=== PATIENT | female | born 1945 | race Caucasian/White ===

== ENCOUNTER 2023-10-26 10:19 | Outpatient (POV) | payer MEDICARE, SELFPAY ==
[2023-10-26 11:53] VITALS: BP 135/61; PULSE 109; RESP 18; O2SAT 91; BMI 23.9
--- NOTE | 2023-10-26 13:00 | EXP.PAIN.OV ---
HPI Data of Consult Patient: new to practice Consult date: 10/26/23 Requesting Physician: Nathalie Zuleta APRN Consult Narrative Reason for consult: Mid back pain History of present illness: Ms. Bauer is a 78 year old female who presents today as a new patient. She is a referral from [facility]. Today she rates her pain a 10 out of 10. Patient states that she is experiencing pain all around her mid back that does radiate down into her low back but also into her abdomen patient states that she has had chronic pain however this is different. Patient states that she really noticed a change in her pain and around mid August. Patient states the pain was unrelenting and it is a sharp severe pain that takes her breath away. She states that any little movement causes worsening pain and that she cannot do any activity let alone activities of daily living such as cooking and cleaning due to the pain. She states that her mid back is supersensitive to touch and that she has not even been able to wear a bra due to the extreme sensitivity and worsening pain. Patient states that she did end up going to the ER and was diagnosed with a compression fracture however she denies any specific trauma or fall that related to this. Patient states that in the past she had had a DEXA scan about 4 years ago and her doctor at that time said everything was okay however she does question whether or not if it showed more osteoporosis. Patient states that within the last year or so she was given intranasal calcium nasal spray and then does take vitamin D supplements for her osteoporosis. Patient has been tried on [place] 5 mg and Percocet 5 mg and does not with no additional change. Patient states the pain is excruciating and she would like to proceed forward with what ever to make the pain go away. Patient does have severe COPD and is on continuous O2. Patient's oxygen level today was at 91%. Patient states that she believes her oxygen is low due to the worsening pain and that she cannot take adequate deep breaths due to it it sending sharp shooting pains. Patient states that nothing seems to make the pain better. She is also tried CBD products. Her Mj has been reviewed and is appropriate. Patient was denied MRI due to not having recent physical therapy. CC: Nathalie Zuleta APRN [facility] Disclaimer: The information contained in this section may have been updated after the patient was seen, as this information can be updated by other users. Medical History (Updated 10/26/23 @ 13:08 by Nathalie Zuleta APRN) Diabetes COPD (chronic obstructive pulmonary disease) CAD (coronary artery disease) Glaucoma HLD (hyperlipidemia) Vitamin D deficiency Cobalamin deficiency Surgical History (Updated 10/26/23 @ 10:50 by Marisela Huynh RN) History of lung surgery H/O breast surgery H/O: hysterectomy History of cataract surgery Family History (Updated 10/26/23 @ 10:48 by Marisela Huynh RN) Other Alzheimer disease Cancer Diabetes Glaucoma Hypertension Hypothyroidism Social History (Updated 10/26/23 @ 11:08 by Marisela Huynh RN) Smoking Status: Current every day smoker alcohol intake: never current occupational status: retired Travel in the last 8 weeks: None Review of Systems Review of Systems Review of systems:: pertinent systems reviewed and negative unless documented below Review of systems (narrative): Review of Systems: General: No recent weight changes, no fever, no sleep disturbances Respiratory: No cough, no shortness of air, no recurring pulmonary infections Cardiovascular/peripheral vascular: No chest pain, no palpitations, no edema, no shortness of breath Gastrointestinal: No new onset incontinence, normal bowel movements reported Genitourinary: No new onset incontinence Musculoskeletal: Mid back pain Psychiatric: [Normal mood/affect] Neurological: [Denies weakness in extremities], [denies balance issues] Meds Home Medications and Allergies Home Medications Medication Instructions Recorded Confirmed Type albuterol sulfate 2.5 mg/3 mL 2.5 mg inhalation DIRECTED 10/26/23 10/26/23 History (0.083 %) solution for nebulization Breathing Problems albuterol sulfate 90 mcg/actuation 2 puff inhalation Q4HP PRN 10/26/23 10/26/23 History aerosol inhaler (Ventolin HFA) Breathing Problems atorvastatin 20 mg tablet 20 mg PO DAILY Cholesterol 10/26/23 10/26/23 History baclofen 5 mg tablet 5 mg PO TID #42 tabs 10/26/23 Rx calcitonin (salmon) 200 1 spray intranasal DAILY 10/26/23 10/26/23 History unit/actuation nasal spray furosemide 40 mg tablet 40 mg PO DAILYP PRN SWELLING 10/26/23 10/26/23 History hydrocodone 7.5 mg-acetaminophen 1 tab PO TID #42 tabs 10/26/23 Rx 325 mg tablet ketorolac 10 mg tablet 10 mg PO Q8HP PRN Pain 10/26/23 10/26/23 History montelukast 10 mg tablet 10 mg PO DAILY ALLERGIES 10/26/23 10/26/23 History omeprazole 40 mg capsule,delayed 40 mg PO DAILY GERD 10/26/23 10/26/23 History release oxycodone-acetaminophen 5 mg-325 1 tab PO Q8HP PRN Pain 10/26/23 10/26/23 History mg tablet pregabalin 100 mg capsule 100 mg PO TID Pain 10/26/23 10/26/23 History roflumilast 250 mcg tablet 250 mcg PO DAILY 10/26/23 10/26/23 History tizanidine 4 mg tablet 4 mg PO BIDP PRN Pain 10/26/23 10/26/23 History New Prescriptions to Start Prescriptions: baclofen Song,Nathalie A hydrocodone-acetaminophen Zuleta,Nathalie A Allergies Allergy/AdvReac Type Severity Reaction Status Date / Time doxycycline Allergy Verified 10/26/23 10:26 levofloxacin [From Levaquin] Allergy Verified 10/26/23 10:26 Objective Vital signs: Pulse Resp BP Pulse Ox O2 Del Method O2 Flow Rate 109 H 18 135/61 91 L Nasal Cannula 3 10/26/23 11:53 10/26/23 11:53 10/26/23 11:53 10/26/23 11:53 10/26/23 11:53 10/26/23 11:53 Narrative: Physical Exam: General: Alert and oriented x3, no acute distress, pleasant and cooperative Lungs: Respirations even and unlabored, symmetrical chest expansion Eyes: PERRL Musculoskeletal: Flexion and extension of thoracic [spine] somewhat guarded secondary to pain, [antalgic gait noted] point tenderness along mid back Neurological: Speech clear, no gross sensory deficit Additional findings Additional findings: CT thoracic spine without contrast September 15, 2023 Findings: T9 compression fracture has progressed since the prior examination with that under 50% height loss as compared to 25% previously there is some associated sclerosis and there is curvilinear lucency within the vertebral body and could represent an acute on healing subacute fracture. Pathological fracture is not completely excluded. Short-term follow-up MRI pre and postcontrast is recommended. No subluxation or significant bony repulsion. Posterior elements are intact. Remaining vertebral body heights are maintained. No abnormal paraspinal soft tissue thickening. Visualized portions of the lungs demonstrate advanced emphysematous changes as before. There is worsening airspace disease within the posterior medial right upper lobe and there is mucus or other debris within the trachea and mainstem bronchi. Left-sided calcified pleural plaques are again noted. Lumbar CT 09/08/2023 Interpretation: Lumbar vertebral body stature maintained. Multilevel osteophytes and facet arthrosis. Advanced L5-S1 disc height loss. No listhesis. Atherosclerotic aorta. Degenerative changes SI joints and pubic symphysis. Superior hip joint space narrowing bilaterally Thoracic CT 10/04/2023 Findings: Normal vertebral body heights and alignment. Minimal anterior osteophytic spurring and disc space narrowing. Emphysematous changes are noted in the lungs Assessment and Plan *Assessment and plan (1) Compression fracture of body of thoracic vertebra: Status: Acute Category: Medical Code(s): S22.000A - Wedge compression fracture of unspecified thoracic vertebra, initial encounter for closed fracture (2) Degenerative disc disease, thoracic: Status: Acute Category: Medical Code(s): M51.34 - Other intervertebral disc degeneration, thoracic region (3) Thoracic radiculopathy: Status: Acute Category: Medical Code(s): M54.14 - Radiculopathy, thoracic region (4) Degenerative disc disease, lumbar: Status: Acute Category: Medical Code(s): M51.36 - Other intervertebral disc degeneration, lumbar region (5) Lumbar radiculopathy: Status: Acute Category: Medical Code(s): M54.16 - Radiculopathy, lumbar region Plan Patient is experiencing significant pain throughout her mid back with radiating symptoms. Patient does have a significant T9 compression fracture. I have discussed with the patient and her family that she may be a beneficial candidate of a kyphoplasty. Risk and benefits were discussed with the patient and they would like to proceed forward to see if this is an option. I will submit for thoracic MRI to evaluate whether or not this compression fracture is acute or chronic or acute on chronic condition. Patient has tried and failed conservative treatment including multiple pain medications, heat and ice, topicals. Patient is not a candidate for physical therapy due to her significant comorbidities of COPD and active pulmonary disease. Patient is on continuous oxygen. Patient has had worsening pain that does correlate with an acute compression fracture. I will send in a prescription of baclofen 5 mg 3 times daily and Abingdon 7.5 mg 3 times daily and provide a 2-week supply of these medications. I will order the DEXA scan since it has been approximately 4 years and patient is already prescribed for osteoporosis medication of nasal spray from her PCP. We will use this to confirm the osteoporosis diagnosis. I have discussed that she may also benefit from a thoracic epidural steroid injection for additional pain improvement. Risk and benefits were discussed with patient and she would like to proceed forward with this plan of care. Patient is not currently on blood thinners. I did also pet adoption counselor the patient when she goes for her MRI due to the prolonged positioning and worsening pain she is and that I will send a one-time dose of diazepam 2 mg to be taken approximately 45 minutes prior to the procedure. Patient acknowledges understanding agrees with this plan of care. I will also order the patient a compounded cream. Patient will be scheduled for a thoracic epidural under fluoroscopy at T8-T9. Patient has been instructed to contact the clinic with any concerns before the next appointment. Dr. Ovalle has reviewed this note and agrees with this plan of care. This note was dictated using voice recognition software and make contain errors or omissions.
== END 2023-10-26 23:59 | disposition home or self-care (01) ==
PROVIDERS: Visit Provider Nurse Practitioner Family
DX: S22.000A Wedge compression fracture of unspecified thoracic vertebra, initial encounter for closed fracture (principal); M51.14 Intervertebral disc disorders with radiculopathy, thoracic region; M51.16 Intervertebral disc disorders with radiculopathy, lumbar region
CPT/HCPCS: 99202; G0463

== ENCOUNTER 2023-11-01 09:19 | Day surgery (SDC) | payer MEDICARE, SELFPAY ==
[2023-11-01 09:42] VITALS: BP 150/80; PULSE 110; RESP 18; TEMP 36.6; O2SAT 92; BMI 23.2
[2023-11-01 10:05] VITALS: BP 117/66; PULSE 113; RESP 20; O2SAT 92
--- NOTE | 2023-11-01 10:08 | EXP.PAIN.PRO ---
Procedure Date: 11/01/23 Time: 09:55 Anesthesiologist:: Gomez Reyes CRNA Complications:: None Pre-procedure Diagnosis:: Degenerative disc thoracic spine multilevels. Cervical radiculopathy. T9 compression fracture. Post-procedure Diagnosis:: Same. Indications for Procedure:: Patient is a pleasant 78-year-old female comes our clinic today for T8-9 thoracic epidural steroid injection. Patient reports thoracic back pain as well as bilateral rib cage radicular pain. Patient has confirmed T9 compression fracture. She rates her pain 10/10. Procedure Details:: Procedure:Thoracic epidural steroid injection under fluoroscopy Informed consent was obtained and the risks and benefits of the procedure were explained to the patient. The patient was taken to the procedure room and noninvasive monitors placed, including noninvasive blood pressure cuff and pulse oximeter. The back was viewed using C-Arm fluoroscopy and prepped using Betadine as a cleansing solution and the T8-9 interspace was palpated. Skin and subcutaneous tissues were anesthetized using lidocaine 1.5% and a 25-gauge needle. After this, an 18-gauge Touhy epidural needle was placed into the T8-9 interspace and advanced using fluoroscopic guidance and loss of resistance to air until the epidural space was encountered. After confirmation of needle placement in the epidural space, with dye, a solution containing lidocaine 1.5%, 4 mL and Depo-Medrol 80 mg were incrementally injected into the thoracic epidural space. The patient tolerated the procedure well with no complications. The patient was observed in the Pain Clinic and then discharged home neurologically intact. Plan and Disposition:: Patient was discharged without incident.
[2023-11-01 10:09] VITALS: BP 172/77; PULSE 80; RESP 18
[2023-11-01 10:12] VITALS: BP 177/72; PULSE 80; RESP 22
== END 2023-11-01 10:07 | disposition home or self-care (01) ==
LOC: SC.PAINP 09:23
PROVIDERS: Visit Provider Nurse Anesthetist, Certified Registered
DX: M51.34 Other intervertebral disc degeneration, thoracic region (principal); M54.12 Radiculopathy, cervical region; M84.48XD Pathological fracture, other site, subsequent encounter for fracture with routine healing
CPT/HCPCS: 62321; J1010

== ENCOUNTER 2023-11-24 13:46 | Outpatient (POV) | payer MEDICARE, SELFPAY ==
--- NOTE | 2023-11-24 13:48 | EXP.PAIN.SOA ---
[facility] Disclaimer: The information contained in this section may have been updated after the patient was seen, as this information can be updated by other users. Medical History Diabetes COPD (chronic obstructive pulmonary disease) CAD (coronary artery disease) Glaucoma HLD (hyperlipidemia) Vitamin D deficiency Cobalamin deficiency Surgical History History of lung surgery H/O breast surgery H/O: hysterectomy History of cataract surgery Family History Other Alzheimer disease Cancer Diabetes Glaucoma Hypertension Hypothyroidism Social History Smoking Status: Current every day smoker alcohol intake: never current occupational status: retired Travel in the last 8 weeks: None PM Subjective & Objective Subjective Subjective:: Patient is a pleasant 78-year-old female who presents today via telehealth visit for medication refill and follow-up. Today she rates her pain a 10 out of 10. Patient does state that her pain is still severe. She states that it did get a little bit better but since last night she started to have worsening pain yet again. 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 Patient does state that she is scheduled for her MRI this weekend and that she has got tentatively her DEXA scan for the of this month. Patient is present with her sister via this telehealth visit and they have both given consent for this audio appointment. Patient is stating that they are going to call around to see if they can possibly get a sooner appointment at a different location. Patient does have severe COPD and is on continuous O2. Her Mj has been reviewed and is appropriate. Review of Systems: General: No recent weight changes, no fever, no sleep disturbances Respiratory: No cough, no shortness of air, no recurring pulmonary infections Cardiovascular/peripheral vascular: No chest pain, no palpitations, no edema, no shortness of breath Gastrointestinal: No new onset incontinence, normal bowel movements reported Genitourinary: No new onset incontinence Musculoskeletal: Low back pain Psychiatric: [Normal mood/affect] Neurological: [Denies weakness in extremities], [denies balance issues] Pain at rest (0-10 scale): 10 Objective Objective:: General: Alert and oriented x3, pleasant and cooperative Lungs: Patient is able to say complete sentences without dyspnea Neurological: Speech clear Has patient had previous pain injection?: No Conservative treatment options previously tried: Prescription medications Length of treatment: Longer than 6 weeks Meds Home Medications and Allergies Home Medications Medication Instructions Recorded Confirmed Type albuterol sulfate 2.5 mg/3 mL 2.5 mg inhalation DIRECTED 10/26/23 11/01/23 History (0.083 %) solution for nebulization Breathing Problems albuterol sulfate 90 mcg/actuation 2 puff inhalation Q4HP PRN 10/26/23 11/01/23 History aerosol inhaler (Ventolin HFA) Breathing Problems atorvastatin 20 mg tablet 20 mg PO DAILY Cholesterol 10/26/23 11/01/23 History baclofen 5 mg tablet 5 mg PO TID #42 tabs 10/26/23 11/01/23 Rx calcitonin (salmon) 200 1 spray intranasal DAILY 10/26/23 11/01/23 History unit/actuation nasal spray diazepam 2 mg tablet 2 mg PO ONCE #1 tab 10/26/23 11/01/23 Rx furosemide 40 mg tablet 40 mg PO DAILYP PRN SWELLING 10/26/23 11/01/23 History hydrocodone 7.5 mg-acetaminophen 1 tab PO TID #42 tabs 10/26/23 11/01/23 Rx 325 mg tablet ketorolac 10 mg tablet 10 mg PO Q8HP PRN Pain 10/26/23 11/01/23 History montelukast 10 mg tablet 10 mg PO DAILY ALLERGIES 10/26/23 11/01/23 History omeprazole 40 mg capsule,delayed 40 mg PO DAILY GERD 10/26/23 11/01/23 History release oxycodone-acetaminophen 5 mg-325 1 tab PO Q8HP PRN Pain 10/26/23 11/01/23 History mg tablet pregabalin 100 mg capsule 100 mg PO TID Pain 10/26/23 11/01/23 History roflumilast 250 mcg tablet 250 mcg PO DAILY 10/26/23 11/01/23 History tizanidine 4 mg tablet 4 mg PO BIDP PRN Pain 10/26/23 11/01/23 History New Prescriptions to Start Prescriptions: Allergies Allergy/AdvReac Type Severity Reaction Status Date / Time doxycycline Allergy Verified 10/26/23 10:26 levofloxacin [From Levaquin] Allergy Verified 10/26/23 10:26 Assessment and Plan *Assessment and plan (1) Compression fracture of body of thoracic vertebra: Status: Acute Category: Medical Code(s): S22.000A - Wedge compression fracture of unspecified thoracic vertebra, initial encounter for closed fracture (2) Degenerative disc disease, thoracic: Status: Acute Category: Medical Code(s): M51.34 - Other intervertebral disc degeneration, thoracic region (3) Thoracic radiculopathy: Status: Acute Category: Medical Code(s): M54.14 - Radiculopathy, thoracic region (4) Degenerative disc disease, lumbar: Status: Acute Category: Medical Code(s): M51.36 - Other intervertebral disc degeneration, lumbar region (5) Lumbar radiculopathy: Status: Acute Category: Medical Code(s): M54.16 - Radiculopathy, lumbar region Plan Patient continues to experience significant pain throughout her mid to low back with radiating symptoms. I have counseled the patient that we will follow-up with her in 2 weeks after she has had her MRI completed and DEXA scan in order to review the findings and see if a kyphoplasty is an option or whether we do conservative treatment. I have counseled the patient that we will send in refills on her 7.5 mg 3 times a day and baclofen 5 mg 3 times a day and provide a 1 month supply of these medications. Patient will return to clinic in 2 weeks for reevaluation of symptoms and plan of care. Patient was counseled that she is able to get her DEXA scan sooner and she can call our office and move the appointment. Patient is agreeable to this plan of care. Risks and benefits of the medication have been explained in detail to the patient. The patient does understand the risk of dependence on the medication when given over a prolonged period. Patient has been advised of risks of oversedation with the prescribed medication. Narcan has been offered to the paitent in the event of oversedation. Patient has been advised that a family member should also be educated regarding administration of Narcan. The patient has been advised to consult with his/her primary care provider and pharmacist regarding drug-drug interaction of medications currently prescribed. Patient has been prescribed a controlled substance after being counseled on the medication, medication safety, and possible side effects. Opioid contract was reviewed and signed by the patient, and that they have agreed to all of the terms set forth by our compliance program. Patient has been instructed to contact the clinic with any concerns before the next appointment. Dr. Ovalle has reviewed this note and agrees with this plan of care. This note was dictated using voice recognition software and make contain errors or omissions. This telehealth visit occurred from -
== END 2023-11-24 23:59 | disposition home or self-care (01) ==
PROVIDERS: Visit Provider Nurse Practitioner Family
DX: S22.000A Wedge compression fracture of unspecified thoracic vertebra, initial encounter for closed fracture (principal); M51.35 Other intervertebral disc degeneration, thoracolumbar region; M54.15 Radiculopathy, thoracolumbar region
CPT/HCPCS: 99212; G0463